=== PATIENT | male | born 1990 | race African-American/Black ===

== ENCOUNTER 2019-02-05 11:05 | Emergency (ER) | payer OTHER ==
[~2019-02-05] VITALS: Ht 188 cm; Wt 95.3 kg
--- NOTE | 2019-02-05 11:13 | NUR ---
CAME IN FOR R KNEE PAIN S/P SLIP AND FALL 2 DAYS. ACL RECONSTRUCTION 01/28/19, TO ER BED 9, KEPT COMFORTABLE. DR ALLEN AT BEDSIDE
[2019-02-05 11:33] VITALS: BP 131/81
--- NOTE | 2019-02-05 11:33 | NUR ---
Patient discharged to home in stable condition. Written and verbal after care instructions given. Patient verbalizes understanding of instruction.
== END 2019-02-05 11:33 | disposition home or self-care (01) ==
LOC: ER 11:05
DX: G89.18 Other acute postprocedural pain (principal); Z98.890 Other specified postprocedural states